=== PATIENT | female | born 1930 | race Caucasian/White ===

== ENCOUNTER 2021-05-19 10:53 | Inpatient (IN) | payer MEDICARE ==
[~2021-05-19] VITALS: Ht 154.9 cm; Wt 53.5 kg
--- NOTE | 2021-05-19 11:31 | NUR ---
PT IS IN ROOM #1B. DR NINO EVALUATED THE PT.
[2021-05-19] MEDS ORDERED: ACET-73 PO (11:49)
[2021-05-19] MEDS ORDERED: CEPH500T PO (11:49)
[2021-05-19] MEDS ORDERED: FERR325T28 PO (11:49)
[2021-05-19] MEDS ORDERED: GABA-532 PO (11:49)
[2021-05-19] MEDS ORDERED: AMLO-212 PO (11:49)
[2021-05-19] MEDS ORDERED: EPOE1VIA12 SQ (11:49)
[2021-05-19] MEDS ORDERED: ASPI81TA31 PO (11:49)
[2021-05-19] MEDS ORDERED: CLOT15CR36 TP (11:49)
[2021-05-19] MEDS ORDERED: FOLI0.8T2 PO (11:49)
[2021-05-19] MEDS ORDERED: CHOL500062 PO (11:49)
[2021-05-19] MEDS ORDERED: HYDR-894 PO (11:49)
[2021-05-19] MEDS ORDERED: VOLTAREN GEL TP (11:49)
[2021-05-19] MEDS ORDERED: FOLI1TAB94 PO (11:49)
[2021-05-19] MEDS ORDERED: ROSU5TAB PO (11:49)
[2021-05-19] MEDS ORDERED: ONDA4TAB5 PO (11:49)
[2021-05-19] MEDS ORDERED: LEVO75TA7 PO (11:49)
[2021-05-19] MEDS ORDERED: ERGO2500 PO (11:49)
[2021-05-19] MEDS ORDERED: BUPR-96 PO (11:49)
[2021-05-19] MEDS ORDERED: QUET25TA PO ×2 (11:49)
[2021-05-19 12:16] LABS: HEMATOCRIT 27.3 % (31.2-41.9); MEAN CORPUSCULAR HEMOGLOBIN 28.9 uug (24.7-32.8); MEAN CORPUSCULAR VOLUME 92.1 fL (75.5-95.3); PLATELET COUNT (AUTO) 187 K/uL (179-408)
[2021-05-19 12:35] LABS: CARBON DIOXIDE 17 mmol/L (21-32); CHLORIDE 110 mmol/L (98-107); CREATININE 4.4 mg/dL (0.6-1.3); GLUCOSE 108 mg/dL (74-106); UREA NITROGEN, BLOOD 47 mg/dL (7-18)
[2021-05-19 12:41] LABS: ALANINE AMINOTRANSFERASE 12 U/L (14-59); ALKALINE PHOSPHATASE 83 U/L (50-136); ASPARTATE AMINOTRANSFERASE 15 U/L (15-37); BILIRUBIN,DIRECT 0.2 mg/dL (0.0-0.2); BILIRUBIN,TOTAL 0.5 mg/dL (0.2-1.0); TOTAL PROTEIN, SERUM 6.1 g/dL (6.4-8.2)
[2021-05-19] MEDS ORDERED: PANTOPRAZOLE SODIUM 40 MG VIAL IV ONE (13:00)
[2021-05-19] MEDS ORDERED: PANTOPRAZOLE SODIUM 40 MG VIAL ONE ×2 (13:28→18:15)
[2021-05-19] MEDS ORDERED: LORAZEPAM 2 MG/1 ML VIAL IV PRN (16:45)
[2021-05-19] MEDS ORDERED: Z GUARD REMEDY PASTE 57 GM TUBE TOP PRN (16:45)
[2021-05-19] MEDS ORDERED: ONDANSETRON 4 MG/2 ML VIAL IV PRN (16:45)
[2021-05-19] MEDS: PANTOPRAZOLE SODIUM 40 MG VIAL IV SCH ×2 (17:00→17:31)
--- NOTE | 2021-05-19 18:40 | NUR ---
ADMITTED VIA [facility]. ORIENTED TO SURROUNDINGS. CONFUSED & FORGETFUL. DAUGHTER AT BEDSIDE. TELEMETRY PLACED ON.
--- NOTE | 2021-05-19 18:55 | NUR ---
REPORT WAS GIVEN TO SALESPERSON JEWELRY. PT WAS TRANSFERED TO ROOM #315.
[2021-05-19 20:00] VITALS: BP 115/48
[2021-05-19] MEDS: IV D5W-0.45% NS +20 KCL 1,000 ML IV PRN (23:00)
[2021-05-20 00:06] VITALS: BP 101/52
[2021-05-20 04:15] VITALS: BP 111/57
--- NOTE | 2021-05-20 06:18 | NUR ---
SHIFT NOTES; RECIEVEDPT FROM AM NURSE COREEN PT ADMITTED FROM ER PT IS ALERT AND ORIENTED X2 NO SIGNS DISTRESS NOTED. PT HAS IVF D51/2 WITH 20KCL INFUSING AT 75ML/HR NO SIGNS OF INFILTRATION NOTED. PT HAS BRUISES ON BOTH ARMS AND LEGS. PT HAS DVT PUMPS BILATERALLY. PT IS NPO WILL CONTINUE TO MONITOR AND ENDORSE TO AM NURSE.
[2021-05-20 06:38] LABS: MEAN CORPUSCULAR VOLUME 90.6 fL (75.5-95.3); PLATELET COUNT (AUTO) 177 K/uL (179-408)
[2021-05-20 06:54] LABS: CARBON DIOXIDE 20 mmol/L (21-32); CHLORIDE 111 mmol/L (98-107); CREATININE 4.5 mg/dL (0.6-1.3); GLUCOSE 100 mg/dL (74-106); MAGNESIUM 2.5 mg/dL (1.8-2.4); PHOSPHOROUS 4.1 mg/dL (2.5-4.9); POTASSIUM 4.2 mmol/L (3.5-5.1); UREA NITROGEN, BLOOD 51 mg/dL (7-18)
[2021-05-20 07:25] LABS: IRON, SERUM 16 ug/dL (50-175)
[2021-05-20] MEDS: IV D5W-0.45% NS +20 KCL 1,000 ML IV PRN ×2 (08:08→18:28)
[2021-05-20] MEDS: PANTOPRAZOLE SODIUM 40 MG VIAL IV SCH ×2 (08:10→16:10)
[2021-05-20] MEDS ORDERED: ACETAMINOPHEN ES 500 MG TABLET PO PRN (11:30)
[2021-05-20] MEDS ORDERED: QUETIAPINE FUMARATE 25 MG TABLET PO PRN (11:30)
[2021-05-20 11:54] VITALS: BP 103/64
[2021-05-20] MEDS: CEFTRIAXONE 1 G in IV DEXTROSE 5% 50 ML IV SCH (12:02)
[2021-05-20] MEDS ORDERED: SOD FERRIC GLUC COMPLX/SUCROSE 125 MG in IV NORMAL SALINE 100 ML IV SCH (14:00)
[2021-05-20 15:55] VITALS: BP 109/57
[2021-05-20] MEDS: QUETIAPINE FUMARATE 25 MG TABLET PO SCH (16:07)
--- NOTE | 2021-05-20 19:00 | NUR ---
RECD PT IN BED, NO ACUTE DISTRESS NOTED, ON TELE SR 84 W/ BB,ALERT ORIENTED X2.IV FLUIDS INFUSING WELL TOLEFT FOREARM,INCONTINENT OF B/B.DNR/DNI STATUS,
[2021-05-20 20:12] VITALS: BP 115/50
[2021-05-20] MEDS ORDERED: ATORVASTATIN 10 MG TABLET PO SCH (21:00)
[2021-05-20] MEDS ORDERED: GABAPENTIN 100 MG CAPSULE PO SCH (21:00)
[2021-05-21] VITALS: BP 106/52
--- NOTE | 2021-05-21 | NUR ---
afebrile,o2 at 2l/min via nasal cannula.bruises on both arms and legs present.slept intermittently.
[2021-05-21 01:03] VITALS: BP 115/50
[2021-05-21 04:27] VITALS: BP 131/62
[2021-05-21 06:09] LABS: HEMATOCRIT 26.6 % (31.2-41.9); MEAN CORPUSCULAR VOLUME 93.9 fL (75.5-95.3); PLATELET COUNT (AUTO) 173 K/uL (179-408)
[2021-05-21] MEDS: PANTOPRAZOLE SODIUM 40 MG VIAL IV SCH (06:29)
[2021-05-21 06:42] LABS: CARBON DIOXIDE 17 mmol/L (21-32); CHLORIDE 111 mmol/L (98-107); CREATININE 4.1 mg/dL (0.6-1.3); GLUCOSE 85 mg/dL (74-106); MAGNESIUM 2.3 mg/dL (1.8-2.4); POTASSIUM 3.9 mmol/L (3.5-5.1); UREA NITROGEN, BLOOD 50 mg/dL (7-18)
[2021-05-21] MEDS ORDERED: LEVOTHYROXINE SODIUM 75 MCG TABLET PO SCH (07:00)
[2021-05-21] MEDS: QUETIAPINE FUMARATE 25 MG TABLET PO SCH (08:02)
[2021-05-21] MEDS ORDERED: CLOTRIMAZOLE/BETAMET DIPROP CREAM 15 GM TUBE TP SCH (09:00)
[2021-05-21] MEDS ORDERED: AMLODIPINE 5 MG TABLET PO SCH (09:00)
[2021-05-21] MEDS ORDERED: FOLIC ACID/VITAMIN B COMP W-C TABLET PO SCH (09:00)
[2021-05-21] MEDS ORDERED: buPROPion XL 150 MG TAB.SR.24H PO SCH (09:00)
[2021-05-21] MEDS ORDERED: FOLIC ACID 1 MG TABLET PO SCH (09:00)
[2021-05-21] MEDS ORDERED: ASPIRIN 81 MG TAB.CHEW PO SCH (09:00)
[2021-05-21] MEDS ORDERED: Medication Not On Formulary EA (Rosuvastatin Calcium (Crestor) 1 TAB) PO SCH (09:00)
[2021-05-21 10:46] VITALS: BP 105/45
[2021-05-21] MEDS: CEFTRIAXONE 1 G in IV DEXTROSE 5% 50 ML IV SCH (12:00)
--- NOTE | 2021-05-21 13:00 | NUR ---
dc orders received noted and carried out,dc instruction and rn report given to the [facility] .pt left the facility via private van in stable condition
[2021-05-21] MEDS ORDERED: PANTOPRAZOLE SODIUM 40 MG VIAL IV SCH (21:00)
[2021-05-22] MEDS ORDERED: LEVOTHYROXINE SODIUM 75 MCG TABLET PO SCH (07:00)
== END 2021-05-21 12:50 | disposition hospice, home (50) | DRG 378 ==
LOC: ER 10:53 → TRANSITION 15:42 → TELE3 18:24
PROVIDERS: ADMIT Nurse Practitioner Family; ATTEND Hospitalist
DX: K92.2 Gastrointestinal hemorrhage, unspecified (principal); E44.0 Moderate protein-calorie malnutrition; I12.0 Hypertensive chronic kidney disease with stage 5 chronic kidney disease or end stage renal disease; N18.5 Chronic kidney disease, stage 5; R55 Syncope and collapse; D63.1 Anemia in chronic kidney disease; Z66 Do not resuscitate; F03.90 Unspecified dementia, unspecified severity, without behavioral disturbance, psychotic disturbance, mood disturbance, and anxiety; I25.2 Old myocardial infarction; I35.0 Nonrheumatic aortic (valve) stenosis; I45.10 Unspecified right bundle-branch block; I48.91 Unspecified atrial fibrillation; Z85.3 Personal history of malignant neoplasm of breast; Z79.82 Long term (current) use of aspirin; Z86.73 Personal history of transient ischemic attack (TIA), and cerebral infarction without residual deficits; Z87.891 Personal history of nicotine dependence; R53.1 Weakness; Z20.822 Contact with and (suspected) exposure to COVID-19
CPT/HCPCS: 36415; 70030-TC; 71045; 76770; 83550; 83605; 83735; 84100; 84443; 85025; 85730; 86850; 86900; 86901; 87040; 93005; 93307; 97161; A4663; A9150; C9113; G0378; J0696; J2916; J3490; J7030; J7060

== ENCOUNTER 2021-06-18 17:17 | Emergency (ER) | payer MEDICARE ==
[~2021-06-18] VITALS: Ht 154.9 cm; Wt 49.9 kg
[~2021-06-18 17:17] MED LIST: ACET-73 PO; ASPI81TA31 PO; BUPR-96 PO; CHOL500062 PO; CLOT15CR36 TP; EPOE1VIA12 SQ; ERGO2500 PO; FERR325T28 PO; FOLI0.8T2 PO; FOLI1TAB94 PO; GABA-532 PO; HYDR-894 PO; LEVO75TA7 PO; ONDA4TAB5 PO; QUET25TA PO; ROSU5TAB PO; VOLTAREN GEL TP
--- NOTE | 2021-06-18 17:18 | NUR ---
PAtient brought in by RA [id number] for a mechanical ground level fall from [facility], no complaints of pain at this time, no signs of acute distress, hematoma noted to left side of forehead, left elbow skin tear noted, Patient alert and oriented x2
[2021-06-18] MEDS ORDERED: TDAP DIPH,PERTUSS,TET VAC/PF 0.5 ML DISP.SYRIN IM ONE ×2 (17:45→18:16)
[2021-06-18] MEDS ORDERED: LIDOCAINE 1%-EPI 1:100,000 20 ML VIAL IJ ONE (18:00)
[2021-06-18 18:05] LABS: HEMATOCRIT 26.1 % (31.2-41.9); MEAN CORPUSCULAR HEMOGLOBIN 28.5 uug (24.7-32.8); MEAN CORPUSCULAR VOLUME 92.3 fL (75.5-95.3); PLATELET COUNT (AUTO) 391 K/uL (179-408)
[2021-06-18 18:12] LABS: CARBON DIOXIDE 22 mmol/L (21-32); CHLORIDE 107 mmol/L (98-107); CREATININE 5.7 mg/dL (0.6-1.3); GLUCOSE 82 mg/dL (74-106); POTASSIUM 5.8 mmol/L (3.5-5.1); UREA NITROGEN, BLOOD 59 mg/dL (7-18)
[2021-06-18 18:18] LABS: ALANINE AMINOTRANSFERASE 18 U/L (14-59); ALKALINE PHOSPHATASE 61 U/L (50-136); ASPARTATE AMINOTRANSFERASE 20 U/L (15-37); BILIRUBIN,DIRECT 0.3 mg/dL (0.0-0.2); BILIRUBIN,TOTAL 0.5 mg/dL (0.2-1.0); TOTAL PROTEIN, SERUM 6.7 g/dL (6.4-8.2)
--- NOTE | 2021-06-18 18:20 | NUR ---
Epic paged for panel call at this time
[2021-06-18 18:25] LABS: MAGNESIUM 2.6 mg/dL (1.8-2.4)
[2021-06-18 18:28] LABS: THYROID STIMULATING HORMONE 1.066 mIU/mL (0.358-3.740)
[2021-06-18] MEDS ORDERED: INSULIN REGULAR, HUMAN 300 UNIT/3 ML VIAL IV ONE (18:30)
[2021-06-18] MEDS ORDERED: ALBUTEROL SULFATE 2.5 MG/3 ML NEBU NEB ONE (18:30)
[2021-06-18] MEDS ORDERED: IV NS 1000 ML 1,000 ML IV ONE (18:30)
[2021-06-18] MEDS ORDERED: DEXTROSE 50% 50 ML DISP.SYRIN IV ONE (18:30)
[2021-06-18] MEDS ORDERED: ALBUTEROL SULFATE 2.5 MG/3 ML NEBU ONE (18:36)
[2021-06-18] MEDS ORDERED: ALBUTEROL SULFATE 2.5 MG/ 0.5 ML NEBU ONE (18:36)
[2021-06-18 19:11] LABS: *BILIRUBIN,URIN NEGATIVE (NEGATIVE); *BLOOD, URINE 2+ (NEGATIVE); *CLARITY,URINE SLIGHTLY CLOUDY (CLEAR); *COLOR,URINE YELLOW (YELLOW); *KETONES,URINE NEGATIVE (NEGATIVE); *UROBILINOGEN,URINE 0.2 E.U./dl (NORMAL); LEUKOCYTE ESTERASE ,URINE 1+ (NEGATIVE); NITRITE, URINE NEGATIVE (NEGATIVE); UGLUCOSE NEGATIVE (NEGATIVE)
--- NOTE | 2021-06-18 19:20 | NUR ---
left elbow skin tear cleansed with Normal saline and steri strips applied
[2021-06-18] MEDS ORDERED: SODIUM POLYSTYRENE SULFONATE 15 G/60 ML LIQUID UDC PO ONE (19:45)
[2021-06-18] MEDS ORDERED: SODIUM POLYSTYRENE SULFONATE 15 G/60 ML LIQUID UDC ONE (19:54)
--- NOTE | 2021-06-18 20:05 | NUR ---
CALLED ALEX FROM [facility], PROVIDED WITH AN ETA OF 30-40 MINUTES. TAN FROM [facility] MADE AWARE THAT PT IS RETURNING.
[2021-06-18 20:14] LABS: RBC,URINE 20-50 /HPF (0-3)
[2021-06-18 20:15] LABS: BACTERIA,URINE FEW /HPF (NONE SEEN)
--- NOTE | 2021-06-18 21:06 | NUR ---
[facility] [address] AT BEDSIDE TO TRANSPORT PT BACK TO HER FACILITY.
--- NOTE | 2021-06-18 21:15 | NUR ---
Patient discharged to [facility] in stable condition. Written and verbal after care instructions given to patient and paramedics, verbalizes understanding of instructions. Stressed follow up or return to ER for worsening s/s. Denies any pain/discomfort upon discharge. A/O x2-3, no changes in LOC.
[2021-06-18 21:25] VITALS: BP 134/88
== END 2021-06-18 21:22 ==
LOC: ER 17:18
DX: S00.83XA Contusion of other part of head, initial encounter (principal); W06.XXXA Fall from bed, initial encounter; Y92.092 Bedroom in other non-institutional residence as the place of occurrence of the external cause; Z66 Do not resuscitate; E87.8 Other disorders of electrolyte and fluid balance, not elsewhere classified; D53.9 Nutritional anemia, unspecified; E87.5 Hyperkalemia; I25.2 Old myocardial infarction; M54.5 Low back pain; Z85.3 Personal history of malignant neoplasm of breast; E03.9 Hypothyroidism, unspecified; R77.8 Other specified abnormalities of plasma proteins; N18.6 End stage renal disease; Z79.890 Hormone replacement therapy; R94.31 Abnormal electrocardiogram [ECG] [EKG]; I12.0 Hypertensive chronic kidney disease with stage 5 chronic kidney disease or end stage renal disease; Z95.2 Presence of prosthetic heart valve; Z79.82 Long term (current) use of aspirin; Z79.899 Other long term (current) drug therapy; S51.012A Laceration without foreign body of left elbow, initial encounter; Z20.822 Contact with and (suspected) exposure to COVID-19
CPT/HCPCS: 36415; 70030-TC; 70450; 71045; 72125; 72131; 72170; 73080; 83735; 84100; 84443; 85025; 85730; 87077; 87086; 90715; 93005